=== PATIENT | male | born 1965 | race Caucasian/White ===

== ENCOUNTER 2017-09-18 11:20 | Emergency (ER) | payer MEDICARE, MEDICAID ==
[2017-09-18 11:50] VITALS: BP 163/89
--- NOTE | 2017-09-18 11:59 | UC ---
Respiratory Complaint HPI - HPI Summary HPI Summary: Pt c/o cough and wheezing that is not imporving since being seen at [facility] ER and finishing prescription for prednisone. Pt is a longterm heavy, every day smoker. - History of Current Complaint Chief Complaint: UCRespiratory Stated Complaint: SINUS/CHEST CONGESTION Time Seen by Provider: 09/18/17 11:44 Hx Obtained From: Patient Onset/Duration: Gradual Onset, Still Present Timing: Constant Severity Initially: Mild Severity Currently: Mild Pain Intensity: 0 Character: Cough: Nonproductive Aggravating Factors: Deep Breaths, Recumbent Position Associated Signs And Symptoms: Positive: Wheezing, URI, Nasal Congestion - Risk Factors Pulmonary Embolism Risk Factors: Smoking Cardiac Risk Factors: Smoking Pseudomonas Risk Factors: Negative Tuberculosis Risk Factors: Smoking - Allergies/Home Medications Allergies/Adverse Reactions: Allergies Allergy/AdvReac Type Severity Reaction Status Date / Time camphor Allergy Hives/Diff. Verified 09/18/17 11:45 Breathing/I tching eucalyptus Allergy Hives/Diff. Verified 09/18/17 11:45 Breathing/I tching menthol Allergy Hives/Diff. Verified 09/18/17 11:45 Breathing/I tching ANTIBIOTIC Allergy Swelling Uncoded 09/18/17 11:45 Of Face,Lips,& Throat Home Medications: Home Medications Albuterol HFA INHALER* [Ventolin HFA Inhaler*] 1 puff INH Q6H PRN 09/18/17 [ History Confirmed 09/18/17] Nitroglycerin TAB 0.3 MG* 0.3 mg SL Q5M PRN 09/18/17 [History Confirmed 09/18/17 ] oxyCODONE TAB* [Roxycodone TAB 5 mg*] 5 mg PO Q6H PRN 09/18/17 [History Confirmed 09/18/17] PMH/Surg Hx/FS Hx/Imm Hx Previously Healthy: Yes - Surgical History Surgical History: Yes Surgery Procedure, Year, and Place: R and L carpel tunnel [place] - Family History Known Family History: Positive: Cardiac Disease - Social History Alcohol Use: None Alcohol Amount: MAYBE FEW DRINKS/YEAR Substance Use Type: None Smoking Status (MU): Heavy Every Day Tobacco Smoker Type: Cigarettes Amount Used/How Often: 1+ ppd Length of Time of Smoking/Using Tobacco: 36 yrs Have You Smoked in the Last Year: Yes Household Exposure Type: Cigarettes Review of Systems Constitutional: Negative Skin: Negative Eyes: Negative ENT: Sinus Congestion Respiratory: Cough, Other - wheezing Cardiovascular: Negative Gastrointestinal: Negative Genitourinary: Negative Motor: Negative Neurovascular: Negative Musculoskeletal: Negative Neurological: Negative Psychological: Negative Is Patient Immunocompromised?: No All Other Systems Reviewed And Are Negative: Yes Physical Exam Triage Information Reviewed: Yes Appearance: Ill-Appearing Vital Signs: Initial Vital Signs Temp 99.0 F 09/18/17 11:40 Pulse 95 09/18/17 11:40 Resp 19 09/18/17 11:40 BP 163/89 09/18/17 11:40 Pulse Ox 98 09/18/17 11:40 Vital Signs Reviewed: Yes Eye Exam: Normal ENT: Positive: Nasal congestion Dental Exam: Other Dental: Positive: Other: - no teeth Neck exam: Normal Respiratory Exam: Other Respiratory: Positive: Decreased breath sounds, Wheezing Cardiovascular Exam: Normal Musculoskeletal Exam: Normal Neurological Exam: Normal Psychological Exam: Normal Skin Exam: Normal UC Diagnostic Evaluation - Laboratory O2 Sat by Pulse Oximetry: 98 Respiratory Course/Dx - Differential Dx/Diagnosis Differential Diagnosis/HQI/PQRI: Bronchitis, Lower Resp Infection Provider Diagnoses: bronchitis Discharge - Sign-Out/Discharge Documenting (check all that apply): Discharge/Admit/Transfer - Discharge Plan Condition: Stable Disposition: HOME Prescriptions: Albuterol HFA INHALER* [Ventolin HFA Inhaler*] 1 - 2 puff INH Q4H PRN #1 mdi PRN Reason: Sob/Wheezing Azithromycin TAB* [Zithromax TAB (Z-RAMONA) 250 mg #6 tabs] 2 tab PO .TODAY, THEN 1 DAILY #1 ramona Patient Education Materials: Acute Bronchitis (ED) Referrals: Marian Hay MD [Primary Care Provider] - If Needed - Billing Disposition and Condition Condition: STABLE Disposition: Home
== END 2017-09-18 12:07 | disposition home or self-care (01) ==
LOC: UCCORT 11:20
DX: J40 Bronchitis, not specified as acute or chronic (principal); F17.210 Nicotine dependence, cigarettes, uncomplicated; Z88.1 Allergy status to other antibiotic agents; Z91.018 Allergy to other foods; Z91.048 Other nonmedicinal substance allergy status
CPT/HCPCS: 99212; G0463